=== PATIENT | female | born 2000 | race Caucasian/White ===

== ENCOUNTER 2018-08-06 18:43 | Emergency (ER) | payer OTHER, SELFPAY ==
[2018-08-06 18:45] VITALS: BP 118/80; PULSE 73; RESP 18; TEMP 36.8; O2SAT 99; BMI 23.6
--- NOTE | 2018-08-06 19:44 | ED.RN ---
CALLED PT NAME TO TAKE TO A ROOM NO RESPONSE
== END 2018-08-06 19:52 | disposition home or self-care (01) ==
LOC: ED 19:48
PROVIDERS: Emergency Provider Emergency Medicine; Family Provider Family Medicine; PCP Family Medicine
DX: Z53.21 Procedure and treatment not carried out due to patient leaving prior to being seen by health care provider (principal)

== ENCOUNTER 2021-04-26 18:21 | Outpatient (CLI) | payer OTHER, SELFPAY ==
[2021-04-26 18:22] LABS: Bacteria 0 SEEN /hpf (None Seen); Mucous, Urine 0 SEEN /hpf (<or=2+); Red Blood Cells-Urine 0 SEEN /hpf (0-5); Squamous Epithelial Cells - UA 0 SEEN /hpf (5-10); White Blood Cells 0 SEEN /hpf (0-5)
[2021-04-26 18:44] LABS: Color, Urine Yellow (Yellow); Glucose, Dipstick Normal (Normal); Ketone-Dipstick Negative (Negative); Leukocyte Esterase-Dipstick Negative /ul (Negative); Nitrite-Dipstick Negative (Negative); Occult Blood-Urine Negative /ul (Negative); Protein-Dipstick Negative (Negative); Urine Bilirubin Dipstick Negative (Negative); Urine Clarity Clear (Clear); Urine Urobilinogen Normal (Normal)
== END 2021-04-26 23:59 | disposition short-term general hospital (02) ==
PROVIDERS: PCP Family Medicine; Visit Provider Physician Assistant
DX: R35.0 Frequency of micturition (principal)
CPT/HCPCS: 81001; 87086

== ENCOUNTER 2021-06-11 18:18 | Outpatient (CLI) | payer OTHER, SELFPAY | END 2021-06-11 23:59 | disposition home or self-care (01) | PROVIDERS: PCP Family Medicine; Visit Provider Physician Assistant Surgical | DX: J02.9 Acute pharyngitis, unspecified (principal) | CPT/HCPCS: 87070 ==

== ENCOUNTER 2021-06-13 17:52 | Emergency (ER) | payer OTHER, SELFPAY ==
[2021-06-13 17:55] VITALS: BP 113/70; PULSE 107; RESP 16; TEMP 35.8; O2SAT 96; BMI 24.8
--- NOTE | 2021-06-13 18:15 | EDS_ITS ---
HPI History of Present Illness Chief Complaint: Rash Informant: patient and parent Narrative Narrative: Patient started with sore throat subjective fever slight cough about 2 weeks ago. She was seen in urgent care. She was told it was likely viral. Mother called back as she was upset that they had not checked for strep or Covid. They then called in amoxicillin prescription. Patient took this for about 10 days and finished it about 3 days ago. At the end of it she started to get itchy rash. The medicine is now done. The rash is all over her body but most prominently on the face. However the sore throat cough and other symptoms are better. She has no history of allergy to amoxicillin. She does have history of rash with sulfa. She is not having any breathing troubles. [facility] Medical History Dysuria Encounter for screening for COVID-19 Home Medications levonorgestrel-ethinyl estrad [Setlakin 0.15 mg-0.03 mg Tab] 1 ea PO DAILY 08/06/18 [History Last Taken Unknown] amoxicillin 500 mg capsule 1,000 mg PO BID 10 Days #40 cap 06/05/21 [Rx Last Taken Unknown] hydroxyzine pamoate [Vistaril] 25 mg PO TID PRN #20 cap 06/13/21 [Rx Last Taken Unknown] Allergy/AdvReac Type Severity Reaction Status Date / Time chocolate flavor Allergy NOSE BLEEDS Verified 06/13/21 17:55 Sulfa (Sulfonamide Allergy Rash Verified 06/13/21 17:55 Antibiotics) Social History Smoking Status: Never smoker ROS ROS ED Constitutional Constitutional ED: Denies chills or fever(s) Eyes Eyes: Denies blurry vision ENT ENT ED: Reports other Details: See history of present illness. ; Denies rhin orrhea or sore throat Cardiovascular Cardiovascular: Denies chest pain Respiratory/Chest Respiratory/Chest: Denies cough or dyspnea Gastrointestinal Gastrointestinal: Denies nausea or vomiting Musculoskeletal Musculoskeletal: Denies arthralgias or myalgias Integumentary Reports rash Neurologic Neurologic: Denies headache(s) Endocrine Endocrinology: Denies polydipsia or polyuria Allergic/Immunologic Allergic/Immunologic ED: Denies urticaria EXAM Physical Exam Const Vital Signs: 06/13/21 17:55 Temperature 96.4 F L Temperature Source Temporal Pulse Rate 107 H Respiratory Rate 16 Blood Pressure 113/70 Blood Pressure Mean 84 Pulse Ox 96 Oxygen Delivery Method Room Air Positive well nourished and well developed General Appearance ED: well developed and NAD HEENT Reports moist mucous membranes HEENT Narrative: No intraoral rash. Patient does have some tonsilloliths but no sign of exudate. Voice is normal. Eyes PERRL and EOMs intact bilaterally Eyes Narrative: No conjunctival injection. Neck Neck Narrative: Patient has some very mild bilateral shotty anterior lymphadenopathy. Resp normal respiratory effort Cardio regular rate GI normal to inspection, nondistended, normoactive bowel sounds, non-tender and non-distended GI Narrative: No tenderness over area of spleen. Palpation: soft Back/Spine no CVA tenderness Extremity General Extremety ED: Negative for edema General Extremity: Negative for edema Psych mental status grossly normal Skin Skin Narrative: Patient does have lacy blanching rash over most of her body. It relatively spares the lower extremities though. It is matching side to side. She has a relatively more prominent area on both malar surfaces. MDM MDM MDM Narrative Medical decision making narrative: Patient does have rash throughout her body. It is a little bit more prominent on both cheeks. It is somewhat pruritic. It started at the end of her amoxicillin treatment. We will write for some Vistaril for the itch. We discussed steroids but I would like to avoid adding multiple new medicines. I get no indication that this was due to mumps. She does not have exam or history consistent with that. Amoxicillin can cause a flare her initial presentation of lupus but this is not something we can diagnose here. She does have Maller rash but she also has a diffuse rash that is all consistent with antibiotic use. If the rash continues or changes or she develops other symptoms she may need further work-up. Discharge Plan Triage Chief Complaint: Rash ED Provider: Moses Pradhan Dx/Rx/DC Orders Clinical Impression: Amoxicillin-induced allergic rash Instructions: ED General Allergic Reactions Prescriptions: New hydroxyzine pamoate [Vistaril] 25 mg capsule 25 mg PO TID PRN (Reason: itching) Qty: 20 RF: 0 No Action levonorgestrel-ethinyl estrad [Setlakin] 1 EACH tablets,dose pack,3 month 1 ea PO DAILY RF: 0 amoxicillin 500 mg capsule 1,000 mg PO BID 10 Days Qty: 40 RF: 0 Primary Care Provider: Esteban Leal Referrals: Esteban Leal MD [Primary Care Provider] - 1 Week Disposition Disposition: Home, Self Care
== END 2021-06-13 18:34 | disposition home or self-care (01) ==
PROVIDERS: Emergency Provider Emergency Medicine; PCP Family Medicine; Visit Provider Emergency Medicine
DX: L27.0 Generalized skin eruption due to drugs and medicaments taken internally (principal); T36.0X5A Adverse effect of penicillins, initial encounter
CPT/HCPCS: 99282

== ENCOUNTER 2021-06-14 19:19 | Outpatient (CLI) | payer OTHER, SELFPAY ==
[2021-06-14 19:47] LABS: Absolute Lymphocyte Count 19.05 X10^3/uL (0.83-4.51); Absolute Neutrophil Count 2.6 X10^3/uL (2.0-7.7); Basophil# 0.05 X10^3/uL; Basophil% 0.2 % (0-1); Eosinophil# 0.07 X10^3/uL; Eosinophils% 0.3 % (0-5); Hematocrit 38.7 % (37-47); Hemoglobin 13.4 g/dL (12.0-15.0); Lymphocyte # 19.05 X10^3/ul (0.83-4.51); Mean Corp Hgb Conc 34.6 g/dL (32-36); Mean Corpuscular Hgb 30.8 pg (27.0-32.0); Mean Platelet Vol. 9.9 fl (6.2-12.0); Monocyte# 2.02 X10^3/uL; Monocyte% 8.5 % (0-10); NRBC Flagged by Analyzer 0 % (0-5); Neutrophil # 2.56 X10^3/uL (2.7-7.7); Neutrophil % 10.8 % (47-70); POSITIVE DIFFERENTIAL YES; POSITIVE MORPHOLOGY YES; Platelet Count 315 K/mm3 (150-450); RBC Distribution Width SD 41.9 fl (35.1-43.9); Red Blood Count 4.35 M/mm3 (4.2-5.4); White Blood Count 23.8 K/mm3 (4.4-11.0)
[2021-06-14 19:48] LABS: Differential Indicated SCAN CRITERIA MET
[2021-06-14 20:04] LABS: Differential Comment SCANNED
[2021-06-14 21:14] LABS: BUN 9 mg/dL (7-18); Creatinine, Serum 0.75 mg/dL (0.55-1.02); EST Glomerular Filtration Rate 103 mL/min (>60); Glucose 95 mg/dL (74-106)
[2021-06-14 21:15] LABS: AST(SGOT) 149 U/L (15-37); Alanine Aminotransfer ALT/SGPT 274 U/L (13-56); Albumin, Serum 3.8 g/dL (3.2-5.0); Alkaline Phosphatase 229 U/L (45-117); Anion Gap 7 (5-15); BUN/Creat Ratio 12.1 RATIO (10-20); Bilirubin, Direct 0.12 mg/dL (0.00-0.30); Calcium,Total 9.1 mg/dL (8.5-10.1); Chloride 104 mmol/L (98-107); Est Glom Filt Rate - Afr Amer 124 mL/min (>60); Globulin 4.7 g/dL (2.2-4.2); Potassium 4.1 mmol/L (3.5-5.1); Protein, Total 8.5 g/dL (6.4-8.2); Sodium Level 136 mmol/L (136-145)
[2021-06-15 13:08] LABS: Pathologist Review Reviewed
[2021-06-16 17:17] LABS: ASO Titer 129.7 IU/mL (0.0-200.0); CMV Acute Antibody IgM < 30.0 AU/mL (0.0-29.9); CMV Antibody IgG < 0.60 U/mL (0.00-0.59); EBV Acute VCA IgM > 160.0 U/mL (0.0-35.9); EBV Nuclear Antigen IgG < 18.0 U/mL (0.0-17.9); EBV-VCA IgG 83.6 U/mL (0.0-17.9)
== END 2021-06-14 23:59 | disposition home or self-care (01) ==
LOC: LAB 19:21
PROVIDERS: PCP Family Medicine
DX: R21 Rash and other nonspecific skin eruption (principal)
CPT/HCPCS: 36415; 80048; 80076; 85025; 86060; 86644; 86645; 86664; 86665

== ENCOUNTER 2021-06-17 11:39 | Emergency (ER) | payer OTHER, SELFPAY ==
[2021-06-17 11:39] VITALS: PULSE 111; RESP 16; TEMP 35.7; O2SAT 96; BMI 25.5
[2021-06-17] MEDS: dexAMETHasone 4 MG Tablet 12 MG PO (12:48)
--- NOTE | 2021-06-17 12:51 | EDS_ITS ---
HPI <WILNER Tang - Last Filed: 06/17/21 14:00> History of Present Illness Chief Complaint: Sore Throat Informant: patient Narrative Narrative: 20-year-old female with no significant ankle history presents the emergency department with complaints of ongoing sore throat, full body rash that has been there for 3 days. Patient sore throat began greater than 2 weeks ago, patient was tested for strep, COVID-19 these were all negative, patient was placed on antibiotics anyway, amoxicillin. Patient developed a rash 3 days after finishing the antibiotics, patient has a rash on her trunk, upper and lower extremities. Her sore throat remain and has not been better. Patient continues to have intermittent fevers and chills. Denies any nausea or vomiting. PFSH <WILNER Tang - Last Filed: 06/17/21 14:00> [facility] Medical History Dysuria Encounter for screening for COVID-19 Home Medications levonorgestrel-ethinyl estrad [Setlakin 0.15 mg-0.03 mg Tab] 1 ea PO DAILY 08/06/18 [History Last Taken Unknown] hydroxyzine pamoate [Vistaril] 25 mg PO TID PRN #20 cap 06/13/21 [Rx Last Taken Unknown] Allergy/AdvReac Type Severity Reaction Status Date / Time chocolate flavor Allergy NOSE BLEEDS Verified 06/13/21 17:55 Sulfa (Sulfonamide Allergy Rash Verified 06/13/21 17:55 Antibiotics) Social History Smoking Status: Never smoker ROS <WILNER Tang - Last Filed: 06/17/21 14:00> ROS ED ROS Narrative Constitutional: Negative for weight loss or gain, weakness. Positive for fever and chills Eyes: Negative for vision loss, vision change, double vision ENT: Negative for any hearing changes, ringing in the ears, dizziness, discharge, pain Nose: Negative for any congestion, runny nose, sinus pain, allergies Throat: Negative for any hoarseness, voice changes. Positive for sore throat Cardiovascular: Negative for any chest pain, tightness, palpitations, racing heartbeat Respiratory: Negative for any coughs, sputum production, coughing, hemoptysis, shortness of breath, shortness of breath on exertion, Gastrointestinal: Negative for any abdominal pain, nausea, vomiting, diarrhea, constipation, blood in stool, blood in vomit : Negative for any urinary frequency, incontinence, dysuria, retention, blood in urine Muscle skeletal: Negative for any muscle joint pain, stiffness, myalgias, arthralgias, neck pain, back pain Neurological: Negative for any headache, head injury, dizziness, syncope, numbness or tingling Skin: Negative for any lumps, itching, abrasions, lacerations. Positive for rash Psychiatric: Negative for any depression, anxiety, stress, suicidal ideation, homicidal ideation Hematologic: Negative for any easy bruising, excessive bruising, easy bleeding Allergies: Negative for any eczema, hives, rash EXAM <WILNER Tang - Last Filed: 06/17/21 14:00> Physical Exam Const Vital Signs: 06/17/21 11:39 06/17/21 11:56 Temperature 96.3 F L Temperature Source Temporal Pulse Rate 111 H Respiratory Rate 16 Respiratory Effort Normal Non-Labored Respiratory Pattern Normal Pulse Ox 96 Oxygen Delivery Method Room Air Positive well nourished and well developed General Appearance ED: well developed Eyes PERRL Neck Neck Narrative: Patient is bilateral cervical lymphadenopathy, patient has +3 tonsils, negative for any signs or symptoms of abscess. Positive for exudate Chest Wall inspection of chest normal and palpation of chest normal Resp normal respiratory effort and clear to auscultation bilaterally Cardio regular rate and regular rhythm GI normal to inspection, nondistended, normoactive bowel sounds, non-tender and non-distended Palpation: soft Extremity normal to inspection Neuro oriented x3 and CN's II-XII intact bilaterally Sensorium / Orientation: alert Psych mental status grossly normal Skin Skin Narrative: Rash to trunk, upper and lower extremities. Rashes consistent with a red raised rash Rashes: rashes noted <Dr. Robbin Burch MD - Last Filed: 06/17/21 13:53> Physical Exam Const Vital Signs: 06/17/21 11:39 06/17/21 11:56 Temperature 96.3 F L Temperature Source Temporal Pulse Rate 111 H Respiratory Rate 16 Respiratory Effort Normal Non-Labored Respiratory Pattern Normal Pulse Ox 96 Oxygen Delivery Method Room Air MDM <WILNER Tang - Last Filed: 06/17/21 14:00> [facility] Lab Data Labs: Laboratory Results - last 24 hr 06/17/21 12:55 Monoscreen POSITIVE H Treatment and Re-Evaluation Narrative: Patient appears well, patient appears nontoxic, vital signs are stable. Patient presents the emerge department with ongoing sore throat, full body rash after amoxicillin. Patient's story, physical examination is consistent with mononucleosis. Patient did receive a positive mono test here, patient was given dexamethasone by mouth to decrease swelling to her posterior pharynx. Patient is in no respiratory distress, negative for any stridor, tonsillar abscess. Patient does not look dehydrated, patient is able to eat and drink. Patient given information regarding mononucleosis, patient is aware that she will treat the symptoms, she is not allergic to amoxicillin. Patient will use ibuprofen, Tylenol, and the importance is to maintain hydration. Patient will have a couple days off work, instructed to return for any worsening symptoms <Dr. Robbin Burch MD - Last Filed: 06/17/21 13:53> [facility] Narrative Medical decision making narrative: 20-year-old female diagnosed with a viral URI and urgent care. Then was placed on amoxicillin for 2 weeks. Rapid strep test was negative. She then developed a rash and has been feeling well. I am evaluating this patient with our physician research study assistant. Itching ENT exam shows bilateral pharyngeal erythema mildly enlarged tonsils not touching. Exudate. No trouble swallowing or breathing. Anterior neck cervical lymphadenopathy. Lungs are clear. Heart regular rhythm no murmur. Abdomen soft nontender. Moving all 4 extremities. Rash that is a red, slightly raised, blanches. Consistent with rash secondary to amoxicillin when having mononucleosis. [place] strep test positive. Thanks treated and discharged with diagnosis of mononucleosis. Lab Data Labs: Laboratory Results - last 24 hr 06/17/21 12:55 Monoscreen POSITIVE H Discharge Plan Triage Chief Complaint: Sore Throat ED Midlevel Provider: Jeff Logan ED Provider: Robbin Burch Dx/Rx/DC Orders Clinical Impression: Infectious mononucleosis Instructions: ED Mononucleosis Prescriptions: No Action levonorgestrel-ethinyl estrad [Setlakin] 1 EACH tablets,dose pack,3 month 1 ea PO DAILY RF: 0 hydroxyzine pamoate [Vistaril] 25 mg capsule 25 mg PO TID PRN (Reason: itching) Qty: 20 RF: 0 Stand Alone Forms: ED Work / School Excuse Primary Care Provider: Esther Teran NP Referrals: Esther Teran NP, [facility] [Primary Care Provider] - Activity Restrictions/Additional Instructions: Please refrain from any contact activity for risks of injuring her spleen. Please maintain hydration, use Tylenol, ibuprofen for any pain or fevers. Print Language: [place] Disposition Disposition: Home, Self Care
[2021-06-17 13:44] LABS: Internal QC Validated? YES +Cl - CLEAR BKGD; Monotest POSITIVE (Negative)
[2021-06-17 14:16] VITALS: PULSE 76; RESP 16; O2SAT 97
== END 2021-06-17 14:17 | disposition home or self-care (01) ==
PROVIDERS: Nurse Practitioner; Emergency Provider Emergency Medicine; PCP Registered Nurse; Visit Provider Emergency Medicine
DX: B27.90 Infectious mononucleosis, unspecified without complication (principal)
CPT/HCPCS: 86308; 99283

== ENCOUNTER 2021-06-18 09:57 | Outpatient (CLI) | payer OTHER, SELFPAY ==
--- NOTE | 2021-06-18 10:02 | US_ITS ---
STUDY: ABDOMINAL ULTRASOUND - RIGHT UPPER QUADRANT REASON FOR VISIT: Female, 20 years old ELEVATED LIVER ENZYMES TECHNIQUE: Ultrasound evaluation of the right upper quadrant was performed with real-time and static chau-scale imaging. TECHNICAL QUALITY: Adequate. COMPARISON: None. FINDINGS: Liver: The liver measures 16.5 cm. There is normal echogenicity of the liver. The bile ducts are within normal limits. There is hepatic color flow. The direction of portal flow is hepatopetal. There is no demonstrated mass lesion. Gallbladder: Normal distended gallbladder. The gallbladder wall measures 1.8 mm. There is a negative sonographic George''s sign. There is no pericholecystic fluid. There are no gallstones. Common Bile Duct (C.B.D.): The common bile duct measures 3.8 mm. Pancreas: Normal size of the head, body and tail of the pancreas. There is normal echogenicity of the pancreas. There is no demonstrated pancreatic mass or cyst. Right Kidney: Normal size of the right kidney. The right kidney measures 11.7 cm x 5.4 cm x 5 cm. Normal renal cortex. The right cortex measures 1.5 cm. There is no demonstrated renal mass or cyst. There is no right hydronephrosis. There is evidence of splenomegaly. The spleen measures 14.9 cm x 6.8 cm x 6.4 cm. US/Abdomen Limited IMPRESSION: Splenomegaly. Electronically Signed: Navid Combs MD at 14:39 EDT ,
[2021-06-18 13:30] LABS: Hematocrit 37.9 % (37-47); Hemoglobin 13.1 g/dL (12.0-15.0); Mean Corp Hgb Conc 34.6 g/dL (32-36); Mean Corpuscular Hgb 30.8 pg (27.0-32.0); Mean Corpuscular Volume 89.2 fL (81-99); Mean Platelet Vol. 11.2 fl (6.2-12.0); POSITIVE DIFFERENTIAL YES; POSITIVE MORPHOLOGY YES; Platelet Count 374 K/mm3 (150-450); RBC Distribution Width CV 12.7 % (11.6-14.6); RBC Distribution Width SD 41.6 fl (35.1-43.9); Red Blood Count 4.25 M/mm3 (4.2-5.4)
[2021-06-18 13:37] LABS: Differential Indicated MANUAL DIFF
[2021-06-18 13:58] LABS: ALB/GLOB Ratio 0.8 RATIO (0.9-2.4); AST(SGOT) 62 U/L (15-37); Alanine Aminotransfer ALT/SGPT 162 U/L (13-56); Albumin, Serum 3.8 g/dL (3.2-5.0); Alkaline Phosphatase 171 U/L (45-117); Anion Gap 7 (5-15); BUN 15 mg/dL (7-18); BUN/Creat Ratio 17.2 RATIO (10-20); Calcium,Total 8.8 mg/dL (8.5-10.1); Chloride 103 mmol/L (98-107); Creatinine, Serum 0.87 mg/dL (0.55-1.02); EST Glomerular Filtration Rate 86 mL/min (>60); Est Glom Filt Rate - Afr Amer 104 mL/min (>60); Globulin 4.8 g/dL (2.2-4.2); Glucose 173 mg/dL (74-106); Potassium 4.4 mmol/L (3.5-5.1); Protein, Total 8.6 g/dL (6.4-8.2); Sodium Level 135 mmol/L (136-145)
[2021-06-18 14:27] LABS: Lymphocyte 56 % (19-41); Metamyelocyte 5 % (0-1); Monocyte 14 % (0-10); Myelocyte 3 % (0-0); Neutrophil-Segmented 22 % (47-70); Red Cell Morphology NORM C+C NORMAL (NORM C&C); Total Cells Counted 100 (MANUAL DIFF)
[2021-06-18 14:28] LABS: Platelet Estimate ADEQUATE (ADEQ)
[2021-06-18 14:33] LABS: Absolute Lymphocyte Count 11.76 X10^3/uL (0.83-4.51); Absolute Neutrophil Count 4.6 X10^3/uL (2.0-7.7)
[2021-06-22 13:52] LABS: Pathologist Review Reviewed
== END 2021-06-18 23:59 | disposition home or self-care (01) ==
LOC: US 09:59
PROVIDERS: PCP Registered Nurse; Referring Provider Registered Nurse; Visit Provider Registered Nurse
DX: D72.829 Elevated white blood cell count, unspecified (principal); R74.8 Abnormal levels of other serum enzymes
CPT/HCPCS: 36415; 76705; 80053; 85025

== ENCOUNTER 2021-06-28 15:43 | Outpatient (CLI) | payer OTHER, SELFPAY ==
[2021-06-28 16:24] LABS: Absolute Lymphocyte Count 5.38 X10^3/uL (0.83-4.51); Absolute Neutrophil Count 3.3 X10^3/uL (2.0-7.7); Basophil# 0.08 X10^3/uL; Basophil% 0.8 % (0-1); Eosinophil# 0.16 X10^3/uL; Eosinophils% 1.7 % (0-5); Hematocrit 37.1 % (37-47); Hemoglobin 12.1 g/dL (12.0-15.0); Lymphocyte # 5.38 X10^3/ul (0.83-4.51); Lymphocyte % 55.9 % (19-41); Mean Corp Hgb Conc 32.6 g/dL (32-36); Mean Platelet Vol. 9.9 fl (6.2-12.0); Monocyte# 0.64 X10^3/uL; Monocyte% 6.7 % (0-10); NRBC Flagged by Analyzer 0 % (0-5); Neutrophil # 3.34 X10^3/uL (2.7-7.7); Neutrophil % 34.7 % (47-70); POSITIVE DIFFERENTIAL YES; POSITIVE MORPHOLOGY YES; Platelet Count 362 K/mm3 (150-450); RBC Distribution Width CV 12.2 % (11.6-14.6); RBC Distribution Width SD 39.8 fl (35.1-43.9); Red Blood Count 4.17 M/mm3 (4.2-5.4); White Blood Count 9.6 K/mm3 (4.4-11.0)
[2021-06-28 17:13] LABS: AST(SGOT) 28 U/L (15-37); Alanine Aminotransfer ALT/SGPT 41 U/L (13-56); Albumin, Serum 3.7 g/dL (3.2-5.0); Alkaline Phosphatase 76 U/L (45-117); Bilirubin, Direct 0.09 mg/dL (0.00-0.30); Globulin 4.3 g/dL (2.2-4.2)
[2021-06-28 17:28] LABS: Differential Indicated SCAN CRITERIA MET
[2021-06-28 17:29] LABS: Platelet Estimate ADEQUATE (ADEQ); Red Cell Morphology NORM C+C NORMAL (NORM C&C)
== END 2021-06-28 23:59 | disposition home or self-care (01) ==
LOC: LAB 15:44
PROVIDERS: PCP Registered Nurse; Referring Provider Registered Nurse; Visit Provider Registered Nurse
DX: R16.1 Splenomegaly, not elsewhere classified (principal); R74.8 Abnormal levels of other serum enzymes; D72.829 Elevated white blood cell count, unspecified
CPT/HCPCS: 36415; 80076; 85025